=== PATIENT | female | born 1990 | race American Indian/Alaskan Native ===

== ENCOUNTER 2017-04-11 10:33 | Emergency (ER) | payer SELFPAY ==
--- NOTE | 2017-04-11 16:44 | Emergency Department Report ---
HPI - General Chief Complaint: Sore Throat Time Seen by Provider: 04/11/17 16:29 - HPI HPI: Patient here reports that she thinks she has strep. Patient states she had strep and the past and this started yesterday. She states that she's been having sore throat since yesterday that is 10 out of 10 worse with swallowing. She reports that she's also had cough for 2 weeks. She is using over-the- counter cough medicine and not helping. She is a port in his congestion and runny nose. Denies any fever or chills. Denies any nausea or vomiting. Denies any abdominal pain or back pain. Denies any shortness of breath or chest pain. Denies any purulent or trouble controlling her secretions. She is able to drink fluids without any difficulties ED Past Medical Hx - Past Medical History Previous Medical History?: Yes Hx Congestive Heart Failure: No Hx Diabetes: No Hx Psychiatric Treatment: Yes Hx Asthma: No Hx COPD: No Hx HIV: No Additional medical history: peritonsilar abscess, c-diff - Surgical History Past Surgical History?: No - Family History Family history: no significant - Social History Smoking Status: Current Every Day Smoker Substance Use Type: None - Medications Home Medications: Home Medications Medication Instructions Recorded Confirmed Last Taken Type Amoxicillin [Amoxicillin TAB] 875 mg PO BID 10 Days #20 tablet 04/11/17 Unknown Rx Cetirizine HCl [ZyrTEC] 10 mg PO QAM 14 Days #14 capsule 04/11/17 Unknown Rx Fluticasone [Flonase] 1 spray NS QDAY 14 Days #1 bottle 04/11/17 Unknown Rx Ibuprofen [Motrin] 600 mg PO Q8H PRN #12 tablet 04/11/17 Unknown Rx guaiFENesin/CODEINE [Robitussin AC] 10 ml PO QHS PRN #50 oral.liqd 04/11/17 Unknown Rx ED Review of Systems ROS: Stated complaint: SORE THROAT Other details as noted in HPI Comment: All other systems reviewed and negative Constitutional: no symptoms reported Eyes: denies: eye pain, eye discharge ENT: ear pain, throat pain, congestion (runny nose and postnasal drainage) Respiratory: cough (worse at night and in the morning and). denies: orthopnea, shortness of breath, SOB with exertion, SOB at rest, stridor, wheezing Cardiovascular: denies: chest pain, palpitations, dyspnea on exertion, edema, syncope, paroxysmal nocturnal dyspnea Gastrointestinal: denies: abdominal pain, nausea, vomiting Musculoskeletal: denies: back pain, joint swelling, arthralgia, myalgia Skin: denies: rash Neurological: denies: headache, weakness, numbness, paresthesias, abnormal gait Physical Exam - Physical Exam Vital Signs: Vital Signs 04/11/17 11:18 Temperature 98.5 F Pulse Rate 66 Respiratory 18 Rate Blood Pressure 122/74 O2 Sat by Pulse 100 Oximetry General: This is a 26-year-old female well-nourished well-developed in no acute distress Physical Exam: Head: Normocephalic atraumatic Ears:BIateral TM congested without erythema and loss of bony landmarks. Dylon EAC with normal exam. No mastoid bone tenderness. Mouth: Moist, no pharyngeal erythema or exudate . No tonsillar erythema or exudate. UVULA midline and oral airways patent. No peritonsillar abscess Neck: Nontender to palpate, supple, normal range of motion. No adenopathy. No c- spine tenderness. Nose: Bilateral nasal mucosa congested with clear drainage. Maxillary and frontal sinuses non-tender to palpate. Eyes: Sclerae and conjunctiva without injection. Bilateral pupils equal and reactive to light. Bilateral lids are normal. Normal accommodation.BEOMI Lungs: Scattered wheezing to upper lung edwards .no use of accessory muscles. No rhonchi or rales. Normal work of breathing and no chest wall tenderness CV: S1, S2. Regular rate and rhythm negative murmur. Capillary refill is less than 3 seconds Skin: Clean dry and intact, no rashes or lesions Psych: Normal mood and behavior abdomen: Soft, nontender to palpate in all quadrants, no guarding or rebound tenderness. Positive bowel sounds in all quadrants and no CVA tenderness ED Course Vital Signs 04/11/17 11:18 Temperature 98.5 F Pulse Rate 66 Respiratory 18 Rate Blood Pressure 122/74 O2 Sat by Pulse 100 Oximetry - Reevaluation(s) Reevaluation #1: 04/11/17 18:06 Patient is stable she is able to tolerate oral liquids. Strep test is negative. ED Medical Decision Making - Lab Data Strep test negative, culture pending - Medical Decision Making ED course: Sent here report that she has sore throats and cough and congestion symptoms have been going on for 2 weeks but sore throat started yesterday. Denies any fever or chills. Patient found to have sinusitis with cough and congestion. Pharyngitis. I discussed diagnosis and treatment plan the patient and she voiced understanding patient and is stable and discharged home with prescription for amoxicillin, Flonase, Zyrtec, guaifenesin with codeine and Motrin and to follow-up with her primary care physician in 2-3 days and if she does not have when she should follow up at [facility]. Given Motrin in ED for sore throat. Critical care attestation.: If time is entered above; I have spent that time in minutes in the direct care of this critically ill patient, excluding procedure time. ED Disposition Clinical Impression: Cough in adult Pharyngitis Qualifiers: Pharyngitis/tonsillitis etiology: other specified organisms Qualified Code(s): J02.8 - Acute pharyngitis due to other specified organisms Sinusitis, acute Qualifiers: Sinusitis location: frontal Recurrence: not specified as recurrent Qualified Code(s): J01.10 - Acute frontal sinusitis, unspecified Disposition: DC-01 TO HOME OR SELFCARE Is pt being admited?: No Does the pt Need Aspirin: No Condition: Stable Instructions: Acute Cough (ED), Sinusitis (ED), Pharyngitis (ED) Additional Instructions: Increase fluid intake Take Motrin to relieve sore throat Gargle warm salt water Do not drive or operate heavy machinery while taking cough medicine as this medication causes drowsiness Take Medication as prescribed Follow up with your primary care physician or [facility] in 2-3 days Prescriptions: guaiFENesin/CODEINE [Robitussin AC] 10 ml PO QHS PRN #50 oral.liqd PRN Reason: Cough Amoxicillin [Amoxicillin TAB] 875 mg PO BID 10 Days #20 tablet Cetirizine HCl [ZyrTEC] 10 mg PO QAM 14 Days #14 capsule Fluticasone [Flonase] 1 spray NS QDAY 14 Days #1 bottle Ibuprofen [Motrin] 600 mg PO Q8H PRN #12 tablet PRN Reason: Pain Referrals: PRIMARY CARE,MD [Primary Care Provider] - 2-[address] [facility] [place] [Outside] - 2-3 Days Forms: Work/School Release Form(ED)
[2017-04-11 17:25] VITALS: BP 136/84
[2017-04-11] MEDS ORDERED: MOTRIN PO ONE (18:08)
== END 2017-04-11 18:29 | disposition home or self-care (01) ==
LOC: ED 10:33
DX: J02.8 Acute pharyngitis due to other specified organisms (principal); J01.10 Acute frontal sinusitis, unspecified; F17.200 Nicotine dependence, unspecified, uncomplicated
CPT/HCPCS: 87116; 87430; 99282

== ENCOUNTER 2017-07-29 10:10 | Emergency (ER) | payer SELFPAY ==
[2017-07-29 10:26] VITALS: BP 129/74
[2017-07-29 10:55] LABS: Bilirubin,Urine NEG (Negative); Blood,Urine NEG (Negative); Color,Urine Yellow (Yellow); Mucus,Urine 1+ /HPF; Protein,Urine <15 mg/dL mg/dL (Negative); Urobilinogen,Urine < 2.0 mg/dL (<2.0)
[2017-07-29 11:11] LABS: Basophils % (Auto) 0.3 % (0.0-1.8); Eosinophils # (Auto) 0.1 K/mm3 (0.0-0.4); Eosinophils % (Auto) 1.1 % (0.0-4.3); Hematocrit 39.5 % (30.3-42.9); Hemoglobin 12.8 gm/dl (10.1-14.3); Lymphocytes # (Auto) 2.8 K/mm3 (1.2-5.4); Lymphocytes % (Auto) 28.4 % (13.4-35.0); Mean Corpuscular HGB Conc 33 % (30-34); Mean Corpuscular Hemoglobin 27 pg (28-32); Mean Corpuscular Volume 84 fl (79-97); Monocytes # (Auto) 0.6 K/mm3 (0.0-0.8); Monocytes % (Auto) 6.3 % (0.0-7.3); Platelet Count 305 K/mm3 (140-440); Red Blood Count 4.69 M/mm3 (3.65-5.03); Red Cell Distribution Width 13.9 % (13.2-15.2)
[2017-07-29 11:50] LABS: Alanine Aminotransferase 13 units/L (7-56); BUN/Creatinine Ratio 16; Blood Urea Nitrogen 14 mg/dL (7-17); Calcium 8.8 mg/dL (8.4-10.2); Hemolysis Index 1
== END 2017-07-29 15:47 | disposition left against medical advice (07) ==
LOC: ED 10:10
DX: R10.9 Unspecified abdominal pain (principal); Z53.21 Procedure and treatment not carried out due to patient leaving prior to being seen by health care provider
CPT/HCPCS: 36415; 80053; 81001; 84703; 85025